=== PATIENT | male | born 1965 | race Caucasian/White ===

== ENCOUNTER 2016-10-14 19:29 | Emergency (ER) | payer SELFPAY ==
[~2016-10-14] VITALS: Ht 193 cm; Wt 120.0 kg
[2016-10-14 19:44] VITALS: BP 168/91; PULSE 67; RESP 20; TEMP 98.8; O2SAT 100
== END 2016-10-15 00:57 | disposition left against medical advice (07) ==
LOC: PHED 19:29
DX: R68.89 Other general symptoms and signs (principal)
CPT/HCPCS: 99281